=== PATIENT | female | born 1975 | race Caucasian/White ===

== ENCOUNTER 2016-10-04 08:15 | Emergency (ER) ==
[2016-10-04 08:39] VITALS: BP 169/096
--- NOTE | 2016-10-04 08:53 | PROVIDER DOCUMENTATION ---
HPI-EENT General - General Chief Complaint: Eye Complaint Stated Complaint: EYE COMPLAINT Time Seen by Provider: 10/04/16 08:49 Source: patient Allergies/Adverse Reactions: Patient Allergies Allergy/AdvReac Type Severity Reaction Status Date / Time No Known Allergies Allergy Verified 10/04/16 08:39 Home Medications: Home Medication List Medication Instructions Recorded Confirmed Last Taken Type Fluoxetine [Prozac] 40 mg PO DAILY 06/22/15 10/04/16 09/27/15 09:00 History Metformin HCl [Glucophage] 500 mg PO BID #60 tablet 08/05/15 10/04/16 09/27/15 09:00 Rx Amlodipine [Norvasc] 10 mg PO DAILY #30 tablet 11/07/15 10/04/16 08/09/16 12:00 Rx Trazodone [Desyrel] 100 mg PO QHS 02/02/16 10/04/16 Unknown History Gentamicin 0.3% Oph Drops 2 drop LEFT EYE TID #1 bottle 10/04/16 Unknown Rx Metformin [Glucophage] 500 mg PO BID CC #60 tablet 10/04/16 Unknown Rx - History of Present Illness-EENT General Nature of Presenting Problem: 41 yo F presents to the ER with complaint of L eye redness and drainage, onset yesterday. States this morning it was matted together, and she feels like something is in it but cannot think of any foreign body or anything else that got in it. EENT Location: reports: eye (L) Quality of Pain: reports: none Onset/Duration: reports: 24 hours ago Prearrival Treatment: Initiated no prearrival treatment - Eyes Eye Problem Symptoms: reports: redness, matting Eye Problem Context: reports: none Review of Systems - Adult - REVIEW OF SYSTEMS - ADULT Constitutional: denies: chills, fever Eyes: reports: redness. denies: eye pain Ears, Nose, Mouth & Throat: reports: no symptoms reported Cardiovascular: reports: no symptoms reported Respiratory: reports: no symptoms reported Gastrointestinal: reports: no symptoms reported Genitourinary: reports: no symptoms reported Musculoskeletal: reports: no symptoms reported Integumentary: reports: no symptoms reported Neurological: reports: no symptoms reported Psychiatric: reports: no symptoms reported Endocrine: reports: no symptoms reported Hematologic/Lymphatic: reports: no symptoms reported Allergic/Immunologic: reports: no symptoms reported All Other Systems: Reviewed and Negative Past History - Adult - PAST MEDICAL HISTORY-ADULT Review of Records: reports: Nursing Assessment Review, Medications Reviewed Cardiovascular: reports: HTN, hyperlipidemia Psychiatric: reports: anxiety, bipolar, depression, psychiatric problems, other (ADHD) Endocrine/Immune: reports: Diabetes - PRIOR SURGERIES/PROCEDURES Surgical/Procedure History: reports: BTL, hernia repair - IMMUNIZATION STATUS Childhood Immunizations: See Nurse Assessment Flu Vaccine: See Nurse Assessment Physical Exam- EENT - Physical Exam EENT Initial Vital Signs Reviewed: Yes General Appearance: alert, no apparent distress Eye Exam: left eye: other (redness and drainage), bilateral eye: PERRL, EOMI Ear Exam: bilateral ear: auricle normal, canal normal, TM normal Nasal Exam: normal inspection. negative: sinus tenderness Throat Exam: normal mouth inspection, pharynx normal Neck: supple, normal inspection Respiratory: no respiratory distress, no accessory muscle use Cardiovascular: normal peripheral pulses, regular rate, rhythm Integumentary: normal color, warm/dry Neurologic: grossly normal, no motor/sensory deficits Psych/Mental Status: normal mood/affect, normal thought content, normal thought process, oriented x 3 Progress - PLAN OF CARE/RESULTS Progress/Plan/Lab Results: Vital Signs Temp Pulse Resp BP Pulse Ox 10/04/16 08:36 98.4 F 120 H 20 169/096 99 No Known Allergies Allergy (Verified 10/04/16 08:39) Fluoxetine [Prozac] 40 mg PO DAILY 06/22/15 Metformin HCl [Glucophage] 500 mg PO BID #60 tablet 08/05/15 Amlodipine [Norvasc] 10 mg PO DAILY #30 tablet 11/07/15 Trazodone [Desyrel] 100 mg PO QHS 02/02/16 Gentamicin 0.3% Oph Drops 2 drop LEFT EYE TID #1 bottle 10/04/16 Metformin [Glucophage] 500 mg PO BID CC #60 tablet 10/04/16 Orders Category Date Time Status Finger Stick Blood Sugar (ED) DIRECTED Care 10/04/16 08:50 Active Departure - Departure Time of Disposition Order: 09:18 DIAGNOSIS: Conjunctivitis of left eye Qualifiers: Conjunctivitis type: unspecified Qualified Code(s): H10.9 - Unspecified conjunctivitis Diabetes Qualifiers: Diabetes mellitus type: type 2 Diabetes mellitus complication status: with unspecified complications Diabetes mellitus senior living insulin use: without senior living use Qualified Code(s): E11.8 - Type 2 diabetes mellitus with unspecified complications Disposition: HOME 01 Certified Medical Emergency: Emergent Condition: Stable Prescriptions: Gentamicin 0.3% Oph Drops 2 drop LEFT EYE TID #1 bottle Metformin [Glucophage] 500 mg PO BID CC #60 tablet Referrals: None,PCP [Primary Care Provider] - Attestation - Scribe Verification/Attestation Scribe:: Jennifer Luis Acting as Scribe for:: Alonso Coleman Scribe documention review:: This chart was documented by a scribe and accurately reflects the service the provider performed and the decisions made by the provider.
== END 2016-10-04 09:28 | disposition home or self-care (01) ==
LOC: P.ED 08:15
DX: H10.9 Unspecified conjunctivitis (principal); E11.9 Type 2 diabetes mellitus without complications; I10 Essential (primary) hypertension; E78.5 Hyperlipidemia, unspecified; F41.9 Anxiety disorder, unspecified; F31.9 Bipolar disorder, unspecified; F32.9 Major depressive disorder, single episode, unspecified; F90.9 Attention-deficit hyperactivity disorder, unspecified type; Z79.899 Other long term (current) drug therapy
CPT/HCPCS: 82948; 99282

== ENCOUNTER 2016-10-07 04:14 | Emergency (ER) ==
--- NOTE | 2016-10-07 04:26 | PROVIDER DOCUMENTATION ---
[id number] Abuse/Overdose - General Stated Complaint: Wants off alcohol Time Seen by Provider: 10/07/16 04:19 Allergies/Adverse Reactions: Allergies Allergy/AdvReac Type Severity Reaction Status Date / Time No Known Allergies Allergy Verified 10/04/16 08:39 Home Medications: Home Medication List Medication Instructions Recorded Confirmed Last Taken Type Fluoxetine [Prozac] 40 mg PO DAILY 06/22/15 10/04/16 09/27/15 09:00 History Metformin HCl [Glucophage] 500 mg PO BID #60 tablet 08/05/15 10/04/16 09/27/15 09:00 Rx Amlodipine [Norvasc] 10 mg PO DAILY #30 tablet 11/07/15 10/04/16 08/09/16 12:00 Rx Trazodone [Desyrel] 100 mg PO QHS 02/02/16 10/04/16 Unknown History Gentamicin 0.3% Oph Drops 2 drop LEFT EYE TID #1 bottle 10/04/16 Unknown Rx Metformin [Glucophage] 500 mg PO BID CC #60 tablet 10/04/16 Unknown Rx - History of Present Illness-Drug/Alcohol Nature of Presenting Problem: alcohol abuse This episode of drinking or use began:: unsure Severity: reports: moderate Situational problems related to:: reports: parent Psychiatric Complaints: reports: agitated, anxiety, depressed. denies: hallucinating, homicidal thoughts, suicidal ideation Associated Symptoms: reports: denies symptoms Any injuries associated with this episode of intoxication?: No Similar Symptoms Previously?: Yes Recently seen or treated by another doctor?: No Review of Systems - Adult - REVIEW OF SYSTEMS - ADULT Constitutional: denies: chills, fever Eyes: denies: discharge, dry eyes, decreased vision, redness Ears, Nose, Mouth & Throat: denies: ear discharge, epistaxis, hoarseness Cardiovascular: reports: chest pain. denies: irregular heart rate, palpitations Respiratory: denies: cough, dyspnea on exertion, shortness of breath Gastrointestinal: denies: abdominal pain Genitourinary: reports: no symptoms reported Musculoskeletal: reports: no symptoms reported Integumentary: reports: no symptoms reported Neurological: reports: no symptoms reported Psychiatric: reports: anxiety, anti-depressant use, alcohol/drug dependence, depression, emotional problems Endocrine: denies: goiter, cold intolerance, heat intolerance, increased thirst , polyuria Hematologic/Lymphatic: reports: no symptoms reported Allergic/Immunologic: reports: no symptoms reported Past History - Adult - PAST MEDICAL HISTORY-ADULT Review of Records: reports: Nursing Assessment Review, Medications Reviewed, Social history reviewed & non-contributory. Major Childhood Illnesses: reports: denies history Cardiovascular: reports: HTN, hyperlipidemia Respiratory: reports: denies history Gastrointestinal: reports: denies history Genitourinary: reports: denies history Musculoskeletal: reports: denies history Neurological: reports: denies history Psychiatric: reports: anxiety, bipolar, depression, psychiatric problems, other (ADHD) Endocrine/Immune: reports: Diabetes Diabetes Type: Type 2 Diabetes controlled by:: PO Meds - PRIOR SURGERIES/PROCEDURES Surgical/Procedure History: reports: BTL, hernia repair - IMMUNIZATION STATUS Childhood Immunizations: See Nurse Assessment Flu Vaccine: See Nurse Assessment - FAMILY HISTORY Family History: reviewed, not pertinent - SOCIAL HISTORY Smoking: denies Substance Use: alcohol Alcohol Use Frequency: every day Number of drinks per typical drinking period:: 11-15 drinks Living Situation: family Physical Exam-General - PHYSICAL EXAM-ADULT Initial Vital Signs Reviewed: Yes - CONSTITUTIONAL General Appearance: appears well, alert - EYES Eyes: PERRL/EOMI, pink conjunctivae - HEAD, EARS, NOSE, MOUTH & THROAT HENMT: normocephalic/atraumatic, moist mucous membranes, normal ENT inspection, TMs normal - NECK Neck: supple - RESPIRATORY Respiratory: lungs clear - CARDIOVASCULAR Cardiovascular: normal peripheral pulses, regular rate, rhythm - GASTROINTESTINAL (ABDOMEN) Abdominal Exam: soft - LYMPHATIC Lymphatic: no adenopathy - MUSCULOSKELETAL Back Exam: normal inspection, no CVA tenderness Extremity: normal range of motion, non-tender, normal gait, no pedal edema - SKIN Integumentary: normal color, normal turgor Progress - PLAN OF CARE/RESULTS Progress/Plan/Lab Results: Laboratory Tests 10/07/16 10/07/16 10/07/16 04:46 04:46 04:46 WBC RBC Hgb Hct MCV MCH MCHC RDW Std Deviation Plt Count MPV Immature Gran % (Auto) Neut % (Auto) Lymph % (Auto) [place] % (Auto) Eos % (Auto) Baso % (Auto) Immature Gran # (Auto) Neut # (Auto) Lymph # (Auto) [place] # (Auto) Eos # (Auto) Baso # (Auto) Sodium 142 Potassium 3.1 L Chloride 104 Carbon Dioxide 27 Anion Gap 11 BUN 5 L Creatinine 0.7 Estimated GFR/1.73 m2 > 60 BUN/Creatinine Ratio 7 Glucose 139 H Calculated Osmolality 283 Calcium 9.9 Magnesium 2.0 Total Bilirubin 0.20 AST 19 ALT 15 Alkaline Phosphatase 96 Total Protein 8.0 Albumin 4.6 Globulin 3.0 Albumin/Globulin Ratio 1.0 TSH 1.91 Free T4 1.10 Urine Source Urine Color Urine Clarity Urine pH Ur Specific [place] Urine Protein Urine Ketones Urine Blood Urine Nitrite Urine Bilirubin Urine Urobilinogen Urine Microscopic RBC Urine WBC Urine Microscopic WBC Ur Epithelial Cells Urine Bacteria Urine Glucose Urine Opiates Screen Ur Oxycodone Screen Urine Methadone Screen Ur Barbituates Screen Ur Tricyclics Screen Ur Phencyclidine Scrn Ur Amphetamines Screen U Methamphetamines Scrn Urine MDMA Screen U Benzodiazepines Scrn Urine Cocaine Screen U Cannabinoids Screen Plasma/Serum Ethyl Alc 157 H 10/07/16 10/07/16 10/07/16 04:46 04:55 04:55 WBC 9.37 RBC 4.43 Hgb 15.0 Hct 42.8 MCV 96.6 MCH 33.9 H MCHC 35.0 RDW Std Deviation 12.7 Plt Count 269 MPV 10.5 H Immature Gran % (Auto) 0.2 Neut % (Auto) 59.0 Lymph % (Auto) 31.9 [place] % (Auto) 4.4 Eos % (Auto) 4.1 Baso % (Auto) 0.4 Immature Gran # (Auto) 0.02 Neut # (Auto) 5.53 Lymph # (Auto) 2.99 [place] # (Auto) 0.41 Eos # (Auto) 0.38 Baso # (Auto) 0.04 Sodium Potassium Chloride Carbon Dioxide Anion Gap BUN Creatinine Estimated GFR/1.73 m2 BUN/Creatinine Ratio Glucose Calculated Osmolality Calcium Magnesium Total Bilirubin AST ALT Alkaline Phosphatase Total Protein Albumin Globulin Albumin/Globulin Ratio TSH Free T4 Urine Source CLEAN CATCH Urine Color YELLOW Urine Clarity CLEAR Urine pH 7.0 Ur Specific [place] 1.005 Urine Protein NEGATIVE Urine Ketones NEGATIVE Urine Blood NEGATIVE Urine Nitrite NEGATIVE Urine Bilirubin NEGATIVE Urine Urobilinogen NORMAL Urine Microscopic RBC Not Reportable Urine WBC NEGATIVE Urine Microscopic WBC <10 Ur Epithelial Cells <10 Urine Bacteria 1+ Urine Glucose NEGATIVE Urine Opiates Screen NONE DETECTED Ur Oxycodone Screen NONE DETECTED Urine Methadone Screen NONE DETECTED Ur Barbituates Screen NONE DETECTED Ur Tricyclics Screen NONE DETECTED Ur Phencyclidine Scrn NONE DETECTED Ur Amphetamines Screen NONE DETECTED U Methamphetamines Scrn NONE DETECTED Urine MDMA Screen NONE DETECTED U Benzodiazepines Scrn PRESUMPTIVE POSITIVE A Urine Cocaine Screen NONE DETECTED U Cannabinoids Screen NONE DETECTED Plasma/Serum Ethyl Alc - EKG 1 Time of EKG reading by physician:: 06:03 EKG Read and Signed by:: Alonso Coleman EKG Interpretation (*Must complete 3 of following elements*): Normal Rate: 105 Rhythm: sinus tachycardia QRS: normal DC Interval: normal ST Wave: normal Departure - Departure Time of Disposition Order: 12:30 DIAGNOSIS: Alcohol intoxication Qualifiers: Complication of substance-induced condition: uncomplicated Qualified Code(s): F10.120 - Alcohol abuse with intoxication, uncomplicated Disposition: HOME 01 Certified Medical Emergency: Emergent Condition: Good Referrals: Angela Chamorro MD [STAFF PHYSICIAN] - None,PCP [Primary Care Provider] - Instructions: Alcohol Intoxication
[2016-10-07 04:55] LABS: MANUAL DIFF NEEDED? NO
--- NOTE | 2016-10-07 04:59 | EKG Report ---
Test Performed on : 10/07/2016 04:30:45 AM Test Reason : pain Blood Pressure : / mmHG Vent. Rate : 105 BPM Atrial Rate : 105 BPM P-R Int : 152 ms QRS Dur : 072 ms QT Int : 354 ms P-R-T Axes : 035 -08 032 degrees QTc Int : 467 ms Sinus tachycardia. Moderate voltage criteria for LVH, may be normal variant Borderline ECG When compared with ECG of 10-AUG-2016 05:21, No significant change was found Unconfirmed Result
[2016-10-07 05:01] LABS: BASO% 0.4 % (0.0-0.8); EOS# 0.38 X1000 (0.0-0.7); EOS% 4.1 % (0.0-10.0); HEMATOCRIT 42.8 % (37.0-47.0); IMM GRAN# 0.02 X1000 (0.0-0.04); IMM GRAN% 0.2 % (0.0-0.5); LYMPH# 2.99 X1000 (1.2-3.4); LYMPH% 31.9 % (20.5-51.1); MCH 33.9 PG (27-31); MCV 96.6 FL (81-99); MONO# 0.41 X1000 (0.11-0.59); MONO% 4.4 % (1.7-9.3); MPV 10.5 FL (7.4-10.4); PLT 269 X1000 (130-400); RBC 4.43 XMIL (4.2-5.4)
[2016-10-07 05:09] LABS: URINE CULTURE PL NEEDED? NO; URINE SOURCE CLEAN CATCH
[2016-10-07 05:19] LABS: AGAP 11; ALBUMIN 4.6 g/dL (3.5-5.0); ALKALINE PHOSPHATASE 96 U/L (32-104); BUN 5 mg/dL (8-22); CALCIUM 9.9 mg/dL (8.8-10.2); CHLORIDE 104 mmol/L (98-107); COSMO 283; GOT 19 U/L (10-30); GPT 15 U/L (10-36); POTASSIUM 3.1 mmol/L (3.5-5.1); SODIUM 142 mmol/L (136-145); TCO2 27 mmol/L (25-35)
[2016-10-07 05:20] LABS: UR AMPHETAMINES QUAL NONE DETECTED (NONE DETECT); UR BARBITUATES QUAL NONE DETECTED (NONE DETECT); UR BENZODIAZEPIN QUAL PRESUMPTIVE POSITIVE (NONE DETECT); UR CANNABINOIDS QUAL NONE DETECTED (NONE DETECT); UR COCAINE QUAL NONE DETECTED (NONE DETECT); UR MDMA QUAL NONE DETECTED (NONE DETECT); UR METHADONE QUAL NONE DETECTED (NONE DETECT); UR METHAMPHETAMINE QUAL NONE DETECTED (NONE DETECT); UR OPIATES QUAL NONE DETECTED (NONE DETECT); UR OXYCODONE QUAL NONE DETECTED (NONE DETECT); UR PCP QUAL NONE DETECTED (NONE DETECT); UR TCA QUAL NONE DETECTED (NONE DETECT)
[2016-10-07 05:22] LABS: BILIRUBIN URINE NEGATIVE (NEGATIVE); BLOOD URINE NEGATIVE (NEGATIVE); CLARITY CLEAR (CLEAR); COLOR YELLOW; GLUCOSE URINE NEGATIVE (NEGATIVE); LEUKOCYTES URINE NEGATIVE (NEGATIVE); NITRITE URINE NEGATIVE (NEGATIVE); PROTEIN URINE NEGATIVE (NEGATIVE); SP GRAVITY URINE 1.005; UROBILINOGEN URINE NORMAL
[2016-10-07 05:29] LABS: FREE T4 1.1 ng/dL (0.93-1.70)
[2016-10-07 05:30] LABS: URINE EPITHELIAL CELLS <10 /HPF (<10); URINE WBC <10 /HPF (<10)
[2016-10-07] MEDS ORDERED: KLOR-CON PO ONE (09:00)
[2016-10-07 12:56] VITALS: BP 118/91
== END 2016-10-07 12:54 | disposition home or self-care (01) ==
LOC: P.ED 04:14
DX: F10.120 Alcohol abuse with intoxication, uncomplicated (principal); R07.9 Chest pain, unspecified; I10 Essential (primary) hypertension; E78.5 Hyperlipidemia, unspecified; E11.9 Type 2 diabetes mellitus without complications; F41.9 Anxiety disorder, unspecified; F32.9 Major depressive disorder, single episode, unspecified; F31.9 Bipolar disorder, unspecified; Z79.899 Other long term (current) drug therapy; F90.9 Attention-deficit hyperactivity disorder, unspecified type
CPT/HCPCS: 36415; 80053; 80305; 81001; 82607; 83735; 84439; 84443; 85025; 93005; 99283; G0480; 80320